=== PATIENT | female | born 1985 | race Caucasian/White ===

== ENCOUNTER 2016-04-20 09:25 | Emergency (ER) | payer BC ==
[2016-04-20 09:30] VITALS: TEMP 98
[2016-04-20] MEDS ORDERED: METOCLOPRAMIDE 5 MG/ML 2 ML VIAL IVP STA (09:54)
[2016-04-20] MEDS ORDERED: SODIUM CHLORIDE 0.9% 500 ML IV STA (09:54)
[2016-04-20] MEDS ORDERED: SODIUM CHLORIDE 0.9% 1,000 ML IV STA (09:54)
--- NOTE | 2016-04-20 10:01 | ED ---
General Adult HPI - General Chief complaint: Nausea/Vomiting/Diarrhea Stated complaint: vomiting,17 weeks preg Time Seen by Provider: 04/20/16 09:51 Source: patient, RN notes reviewed Mode of arrival: ambulatory Limitations: no limitations - History of Present Illness Initial comments: Patient is a 30-year-old female who is approximately 17 weeks , who presents emergency room today with a chief complaint of increased nausea vomiting that started at 3:30 AM. Patient does admit that she's had several bouts of vomiting. Denies any signs of blood. Denies any abdominal pain. Does admit that she's had some vaginal discharge that she has followed up with her OB about and was told it was normal for the . She denies any bleeding. Denies any other complaints or associated symptoms. Patient denies any recent fever, chills, shortness of breath, chest pain, back pain, abdominal pain, numbness or tingling, dysuria or hematuria, constipation or diarrhea, headaches or visual changes, or any other complaints. - Related Data Home Medications Medication Instructions Recorded Confirmed Levothyroxine Sodium [Synthroid] 75 mcg PO DAILY 11/04/13 04/20/16 Pnv with Ca,No.71/Iron/FA 1 tab PO HS 11/04/13 04/20/16 [Vol-Plus Tablet] Previous Rx's Medication Instructions Recorded Metoclopramide HCl [Reglan] 10 mg PO Q6HR PRN #5 day 04/20/16 Allergies Allergy/AdvReac Type Severity Reaction Status Date / Time No Known Allergies Allergy Verified 04/20/16 09:36 Review of Systems ROS Statement: Those systems with pertinent positive or pertinent negative responses have been documented in the HPI. ROS Other: All systems not noted in ROS Statement are negative. Past Medical History Past Medical History: No Reported History History of Any Multi-Drug Resistant Organisms: None Reported Past Surgical History: Breast Surgery, Cholecystectomy, Tonsillectomy Past Anesthesia/Blood Transfusion Reactions: No Reported Reaction Past Psychological History: No Psychological Hx Reported Smoking Status: Never smoker Past Alcohol Use History: None Reported Past Drug Use History: None Reported - Past Family History Mother Family Medical History: No Reported History General Exam - General Exam Comments Initial Comments: General: The patient is awake and alert, in no distress, and does not appear acutely ill. Eye: Pupils are equal, round and reactive to light, extra-ocular movements are intact. No nystagmus. There is normal conjunctiva bilaterally. No signs of icterus. Ears, nose, mouth and throat: There are moist mucous membranes and no oral lesions. Neck: The neck is supple, there is no tenderness or JVD. Cardiovascular: There is a regular rate and rhythm. No murmur, rub or gallop is appreciated. Respiratory: Lungs are clear to auscultation, respirations are non-labored, breath sounds are equal. No wheezes, stridor, rales, or rhonchi. Gastrointestinal: Soft, non-distended, non-tender abdomen without masses or organomegaly noted. There is no rebound or guarding present. No CVA tenderness. Bowel sounds are unremarkable. Musculoskeletal: Normal ROM, no tenderness. Strength 5/5. Sensation intact. Pulses equal bilaterally 2+. Neurological: A&O x 3. CN II-XII intact, There are no obvious motor or sensory deficits. Coordination appears grossly intact. Speech is normal. Skin: Skin is warm and dry and no rashes or lesions are noted. Psychiatric: Cooperative, appropriate mood & affect, normal judgment. Limitations: no limitations Course Vital Signs 04/20/16 09:28 Temperature 98.0 F Pulse Rate 98 Respiratory 20 Rate Blood Pressure 116/81 O2 Sat by Pulse 98 Oximetry Medical Decision Making - Medical Decision Making Patient reexamined at this time shows no signs of distress. Patient states feeling much better here in the emergency room. Patient's ultrasound does show single IUP measuring 17 weeks 0 days. Heart rate was unable to be obtained heart tones so ultrasound was performed. Patient denies any abdominal pain. No vaginal bleeding. Patient labs of urinalysis reviewed no evidence for infection. 3+ ketones. Patient was given 1500 L bolus here the emergency room's feeling better. No nausea vomiting here. Patient will be discharged home with nausea medication of Reglan advised follow-up with her [facility] over the last 2 days. - Lab Data Lab Results 04/20/16 Range/Units 11:38 Urine Color Yellow Urine Appearance Cloudy H (Clear) Urine pH 5.0 (5.0-8.0) Ur Specific [place] 1.020 (1.001-1.035) Urine Protein Negative (Negative) Urine Glucose (UA) Negative (Negative) Urine Ketones 4+ H (Negative) Urine Blood Negative (Negative) Urine Nitrate Negative (Negative) Urine Bilirubin Negative (Negative) Urine Urobilinogen <2.0 (<2.0) mg/dL Ur Leukocyte Esterase Negative (Negative) Urine RBC <1 (0-5) /hpf Urine WBC 1 (0-5) /hpf Ur Squamous Epith Cells 1 (0-4) /hpf Urine Bacteria Rare H (None) /hpf Urine Mucus Occasional H (None) /hpf Disposition Clinical Impression: Hyperemesis gravidarum Disposition: HOME SELF-CARE Condition: Good Instructions: Hyperemesis Gravidarum (ED) Additional Instructions: Please use medication as discussed. Please follow-up with [facility] in the next 2 days of symptoms have not improved. Please return to emergency room if the symptoms increase or worsen or for any other concerns. Prescriptions: Metoclopramide HCl [Reglan] 10 mg PO Q6HR PRN #5 day PRN Reason: Nausea Referrals: Danette Kovacs DO [Primary Care Provider] - 1-2 days Chirag Johnson MD [STAFF PHYSICIAN] - 1-2 days Time of Disposition: 12:35
--- NOTE | 2016-04-20 11:46 | US ---
EXAMINATION TYPE: US OB >= 14 wk fetus DATE OF EXAM: 04/20/2016 11:21 AM COMPARISON: None CLINICAL HISTORY: Pain, vomiting TECHNIQUE: Transabdominal (TA) GESTATIONAL AGE / DATING Physician Established: (17 weeks/0 days) EDC: 09/28/16 Dates by LMP: unknown Dates by First Scan: not available Dates by Current Scan: (17 weeks/0 days) EDC: 09/28/16 SURVEY IUP: Single PLACENTA: Posterior PREVIA: Low Lying PORSHA: cm 10.57 CERVICAL LENGTH (transabdominal: norm > 3.0cm): 3.5cm BIOMETRY PRESENTATION: Vertex LIE: Transverse with head maternal Left BPD: 3.6 cm 17 weeks / 0 days HC: 13.3 cm 16 weeks / 6 days AC: 11.2 cm 17 weeks / 0 days FL: 2.4 cm weeks / days ESTIMATED WEIGHT IN GRAMS: 182 grams ESTIMATED WEIGHT IN LBS/OZS: 0 lbs. 6 oz. WEIGHT PERCENTAGE BASED ON ESTABLISHED DATES: 53.% HC/AC: 13.3 FL/AC: 2.4 HEART RATE: 176 bpm MATERNAL WALL MEASUREMENT: 5.7 cm from skin to anterior uterine wall (if exam limited due to body hab itus). TECHNOLOGIST IMPRESSION: viable with dates above IMPRESSION: Schilling fetus present in a vertex lie with a gestational age of 17 weeks +/- 10 days. Estimated ricardo e of confinement based on this examination is 09/28/2016. Please note the presence of a low-lying placenta. Follow-up in the third trimester would be suggested to further assess placental positioning.
[2016-04-20 12:00] LABS: Appearance,Urine Cloudy (Clear); Bacteria,Urine Rare /hpf; Bilirubin,Urine Negative (Negative); Glucose,Urine (UA) Negative (Negative); Ketones,Urine 4+ (Negative); Leukocyte Esterase,Urine Negative (Negative); Mucus,Urine Occasional /hpf; Nitrite,Urine Negative (Negative); Particle Count 6802; Protein,Urine Negative (Negative); RBC,Urine <1 /hpf (0-5); Squamous Epithelial Cell,Urine 1 /hpf (0-4); UA Billing (MACRO vs. MICRO) MICRO; Urobilinogen,Urine <2.0 mg/dL (<2.0); WBC,Urine 1 /hpf (0-5)
[2016-04-20 12:54] VITALS: BP 107/55; PULSE 99; RESP 15
== END 2016-04-20 12:55 | disposition home or self-care (01) ==
LOC: EC 09:25
DX: O21.0 Mild hyperemesis gravidarum (principal); Z3A.17 17 weeks gestation of pregnancy; Z79.899 Other long term (current) drug therapy
CPT/HCPCS: 81001; 87086; 76805; 99284; 96361; 96374; J2765

== ENCOUNTER 2016-08-30 14:04 | Outpatient (CLI) | payer BC ==
[2016-08-30 14:58] VITALS: BP 121/70; PULSE 85; RESP 16; TEMP 97.5
== END 2016-08-30 14:40 | disposition home or self-care (01) ==
LOC: FBPOP 14:04
PROVIDERS: ATTEND Obstetrics & Gynecology
DX: O26.93 Pregnancy related conditions, unspecified, third trimester (principal); Z3A.35 35 weeks gestation of pregnancy
CPT/HCPCS: 59025; 99213

== ENCOUNTER 2016-09-12 14:45 | Outpatient (CLI) | payer BC ==
[2016-09-12 15:30] VITALS: BP 113/55; PULSE 96; RESP 18; TEMP 97.2
== END 2016-09-12 15:39 | disposition home or self-care (01) ==
LOC: FBPOP 14:45
PROVIDERS: ATTEND Obstetrics & Gynecology
DX: O26.93 Pregnancy related conditions, unspecified, third trimester (principal); Z3A.37 37 weeks gestation of pregnancy
CPT/HCPCS: 59025; 84112; 99213

== ENCOUNTER 2016-09-22 09:59 | Inpatient (IN) | payer BC ==
[2016-09-22] MEDS ORDERED: ceFAZolin 2 GM in SODIUM CHLORIDE 0.9% 100 ML IVPB ONE (10:18)
[2016-09-22] MEDS ORDERED: CITRIC ACID-SODIUM CITRATE 15 ML CUP PO ONE (10:18)
[2016-09-22 10:28] VITALS: BMI 40.3
[2016-09-22] MEDS ORDERED: LACTATED RINGERS 1,000 ML IV ONE (10:45)
[2016-09-22 10:52] LABS: Basophils % (A) 0 %; CH 31.3; Eosinophils # (A) 0.1 k/uL (0-0.7); Eosinophils % (A) 1 %; HDW 2.77; Luc % (Auto) 1; Lymphocytes % (A) 24 %; MCH 31.7 pg (25.0-35.0); MCHC 35.2 g/dL (31.0-37.0); Mean Platelet Volume 8.4; Monocytes # (A) 0.3 k/uL (0-1.0); Monocytes % (A) 4 %; Neutrophils # (A) 5.9 k/uL (1.3-7.7); Neutrophils % (A) 70 %; RBC 4.11 m/uL (3.80-5.40); RDW 13.5 % (11.5-15.5); WBC 8.4 k/uL (3.8-10.6); WBC (Perox) 7.95
[2016-09-22] MEDS ORDERED: ONDANSETRON 4 MG/2 ML VIAL ONE (12:14)
[2016-09-22] MEDS ORDERED: KETOROLAC 30 MG/ML 1 ML VIAL ONE (12:14)
[2016-09-22] MEDS ORDERED: NALBUPHINE 10 MG/ML AMPUL ONE (12:14)
[2016-09-22] MEDS ORDERED: MORPHINE SULFATE (PF) 0.3 MG/0.3 ML SYR ONE (12:14)
[2016-09-22] MEDS ORDERED: ePHEDrine 50 MG/ML 1 ML AMP ONE (12:14)
[2016-09-22] MEDS ORDERED: OXYTOCIN 10 UNIT/ML 1 ML VIAL ONE (12:14)
[2016-09-22] MEDS ORDERED: diphenhydrAMINE 50 MG/ML 1 ML VIAL IVP PRN ×3 (12:41→13:08)
[2016-09-22] MEDS ORDERED: NALOXONE 0.4 MG/ML 1 ML VIAL IV PRN ×2 (12:41→13:08)
[2016-09-22] MEDS ORDERED: MORPHINE SULFATE 4 MG/ML SYRINGE IVP PRN (12:41)
[2016-09-22] MEDS ORDERED: ONDANSETRON 4 MG/2 ML VIAL IVP PRN ×2 (12:41→13:08)
[2016-09-22] MEDS ORDERED: diphenhydrAMINE 50 MG CAP PO PRN (13:08)
[2016-09-22] MEDS ORDERED: ACETAMINOPHEN TAB 325 MG TAB PO PRN (13:08)
[2016-09-22] MEDS ORDERED: SIMETHICONE 80 MG CHEWABLE PO PRN (13:08)
[2016-09-22] MEDS ORDERED: diphenhydrAMINE 25 MG CAP PO PRN (13:08)
[2016-09-22] MEDS ORDERED: METOCLOPRAMIDE 5 MG/ML 2 ML VIAL IVP PRN (13:08)
[2016-09-22] MEDS ORDERED: KETOROLAC 30 MG/ML 1 ML VIAL IVP PRN (13:08)
[2016-09-22] MEDS ORDERED: Acetaminophen-Codeine 300-30mg TAB PO PRN (13:08)
[2016-09-22] MEDS ORDERED: ZOLPIDEM 5 MG TAB PO PRN (13:08)
--- NOTE | 2016-09-22 13:08 | P.HPOB ---
History of Present Illness H&P Date: 09/22/16 Chief Complaint: 39 and one sevenths weeks, previous section, undesired fertility The patient is a 31-year-old 2 para 1001 admitted at 39 and one sevenths weeks as established by last menstrual period and confirmed by an 18 week ultrasound. She is admitted for repeat low transverse section with intraoperative bilateral tubal occlusion using Filshie clips. Consent was signed for these procedures in the office. She understands the permanent nature of tubal ligation and has agreed to proceed. Her has been otherwise uncomplicated. She has a history of a previous section and requested repeat rather than trial of labor. Her was otherwise uncomplicated and group B strep status was negative. Obstetrical history: 2 para 1001 with 1 term delivery for arrest of dilation and descent. Current statistics are listed in history present illness. EDC of 09/28/2016 was established by last menstrual period and confirmed by 18 week ultrasound. Laboratory workup demonstrates a blood type of B+ with a negative antibody screen. Rubella status is immune. Remainder of the laboratory workup was within normal limits. Early Glucola as well as second trimester Glucola were within normal limits per group B strep status is negative. Gynecologic history: Unremarkable with no history of any infections to include STDs. Review of Systems Review of systems is confined to history of present illness. Past Medical History Past Medical History: GERD/Reflux, Thyroid Disorder History of Any Multi-Drug Resistant Organisms: None Reported Past Surgical History: Breast Surgery, Section, Cholecystectomy, Tonsillectomy Past Anesthesia/Blood Transfusion Reactions: Motion Sickness, Postoperative Nausea & Vomiting (PONV) Past Psychological History: Anxiety Smoking Status: Never smoker - Past Family History Mother Family Medical History: No Reported History Additional Family Medical History / Comment(s): high cholesterol Father Family Medical History: Diabetes Mellitus, Hypertension Medications and Allergies Home Medications Medication Instructions Recorded Confirmed Type Levothyroxine Sodium [Synthroid] 75 mcg PO DAILY 11/04/13 09/22/16 History Pnv with Ca,No.71/Iron/FA 1 tab PO HS 11/04/13 09/22/16 History [Vol-Plus Tablet] Omeprazole [PriLOSEC] 1 tab PO DAILY 08/30/16 09/21/16 History Allergies Allergy/AdvReac Type Severity Reaction Status Date / Time No Known Allergies Allergy Verified 09/21/16 13:18 Exam - Vital Signs Vital signs: Vital Signs Temp Pulse Resp BP Pulse Ox 09/22/16 10:00 98.2 F 86 16 111/57 97 Intake and Output 09/21/16 09/22/16 09/22/16 22:59 06:59 14:59 Other: Weight 113.398 kg Patient Weight 09/23/16 06:59 Weight 113.398 kg In general, this is a moderately obese white female in no acute distress. Her heart has a regular rhythm and rate without murmur. Her lungs are clear to auscultation bilaterally in all balderas. Her abdomen is nondistended, gravid, has normal active bowel sounds, is soft, nontender, and without any palpable masses aside from the uterine fundus. Her extremities without any cyanosis, clubbing, or edema and are nontender to palpation bilaterally. Digital cervical examination is deferred. Results Result Diagrams: 09/22/16 10:35 Assessment and Plan (1) Family planning Status: Acute (2) Previous section Status: Acute (3) Term Status: Acute Plan: The patient is admitted for repeat low transverse section with intraoperative bilateral tubal occlusion using Filshie clips. Again, the risks and complications amount thoroughly discussed and she has agreed to proceed.
[2016-09-22] MEDS ORDERED: OXYTOCIN 20 UNITS/1000 ML NS 1,000 ML IV SCH (13:15)
--- NOTE | 2016-09-22 13:27 | P.OP ---
Date of Procedure: 09/22/16 Preoperative Diagnosis: #1. 39 and one sevenths weeks intrauterine #2. Previous section, declining trial of labor #3. Undesired fertility Postoperative Diagnosis: Same plus #4. Nuchal cord 1 Procedure(s) Performed: #1. Repeat low transverse section #2. Bilateral tubal occlusion using Filshie clips Implants: Anesthesia: spinal Surgeon: Chirag Johnson [employer] Attendant #1: Alfreda Donohue Estimated Blood Loss (ml): 500 IV fluids (ml): 100 Urine output (ml): 300 Pathology: other (Placenta) Condition: stable Disposition: floor Indications for Procedure: Operative Findings: The patient was taken the operating room where she was delivered of a viable 8 lbs. 12 oz. baby girl with Apgars of 9 at 1 minute and 9 at 5 minutes delivered in the left occiput anterior position. The placenta was delivered manually, intact, and grossly normal with a grossly normal three-vessel cord. The uterus , tubes, and ovaries were entirely normal to inspection though there were several very small fibroids on the fundus. Description of Procedure: The patient was prepped and draped in usual fashion after spinal anesthesia was administered by the anesthesiologist. A Pfannenstiel incision was made through pre-existing scar and extended into the abdominal cavity without difficulty. There was minimal scarring present. The bladder peritoneum was distal to the site of the incision and left intact. A 2 cm incision was made in the transverse plane of the lower uterine segment to enter the uterus at which time clear fluid was noted. The incision was extended in both directions using bandage scissors. The head was not engaged in the pelvis but was ultimately delivered through the incision with minimal difficulty. A nuchal cord was noted 1 and reduced at that time. The nose and mouth were thoroughly suctioned and the remainder the delivered onto the field where the cord was doubly clamped, cut, and the passed for resuscitative measures with weight and Apgars as noted above. A segment of cord was then doubly clamped, cut, and set aside should cord gases become necessary. The placenta was delivered manually and intact as noted above. The uterus was exteriorized and the interior cavity of the uterus swept of any remaining placental or membranous fragments. The margins of the incision were grasped with King clamps and the incision closed in a single running locking stitch of 0 chromic catgut from margin to margin. Any small points of bleeding were made hemostatic with the Bovie. The posterior cul-de-sac was suctioned using a guard. The uterus was inspected with the findings as noted above. After reaffirming the patient's desire for tubal ligation, a Filshie clip was placed across the isthmic portion of each fallopian tube on each side where was firmly affixed. The uterus was then replaced within the abdominal cavity and the gutters swept of any remaining blood, fluid, or clot. The incision was reexamined and found to be hemostatic. The parietal peritoneum was loosely reapproximated and layer of muscles examined and found to be hemostatic. The fascia was closed with 2 running stitches of 0 Vicryl proceeding from lateral margins to the midpoint. The subcutaneous tissues were irrigated, made hemostatic with the Bovie, and reapproximated with a running stitch of 30 plain catgut. The skin was reapproximated with a running subcuticular stitch of 4-0 Vicryl from margin to margin followed by half-inch Steri-Strips placed with Mastisol. Estimated blood loss for the case is approximately 500 mL. There were no complications. All sponge, instrument, and needle counts were correct. Both mother and infant are resting comfortably in recovery.
[2016-09-22] MEDS: LACTATED RINGERS 1,000 ML IV SCH ×2 (20:24)
[2016-09-22] MEDS: SENNOSIDES-DOCUSATE SODIUM 1 EACH TAB PO SCH (20:51)
[2016-09-23] MEDS: LACTATED RINGERS 1,000 ML IV SCH ×5 (02:18→20:10)
[2016-09-23 07:39] LABS: Basophils % (A) 0 %; CH 31.1; Eosinophils % (A) 0 %; HCT 35.9 % (34.0-46.0); HDW 2.67; HGB 12.3 gm/dL (11.4-16.0); Luc % (Auto) 1; Lymphocytes # (A) 1.5 k/uL (1.0-4.8); Lymphocytes % (A) 16 %; MCH 31.6 pg (25.0-35.0); MCHC 34.3 g/dL (31.0-37.0); MCV 92.1 fL (80.0-100.0); Mean Platelet Volume 9.2; Monocytes # (A) 0.5 k/uL (0-1.0); Monocytes % (A) 5 %; Neutrophils # (A) 7.2 k/uL (1.3-7.7); Neutrophils % (A) 78 %; RDW 13.5 % (11.5-15.5); WBC 9.2 k/uL (3.8-10.6); WBC (Perox) 9.52
--- NOTE | 2016-09-23 09:13 | P.PN ---
Progress Note - Text 0737 Anesthesia POD 1. Patient is status post section under spinal anesthesia with intra-thecal preservative free morphine 300 g. Minimal pruritus, good post-op analgesia, and no headache or other complication.
--- NOTE | 2016-09-23 10:34 | P.PNOBGPC ---
Subjective - Subjective Patient reports: Reports appetite normal, Reports voiding normally, Reports pain well controlled, Reports ambulating normally : doing well Objective - Vital Signs Latest vital signs: Vital Signs Temp Pulse Resp BP Pulse Ox 09/23/16 06:00 100 09/23/16 04:00 98.1 F 85 17 109/57 98 09/23/16 02:00 100 09/23/16 00:00 97.9 F 75 18 105/62 100 09/22/16 22:00 100 09/22/16 20:00 98.2 F 70 18 111/62 100 09/22/16 15:25 98.0 F 89 16 113/57 09/22/16 14:36 78 16 120/59 09/22/16 14:06 81 16 111/56 09/22/16 14:00 98 09/22/16 13:50 80 16 111/56 96 09/22/16 13:35 80 16 106/66 98 09/22/16 13:20 75 16 131/62 09/22/16 13:06 97.6 F 86 16 102/51 100 09/22/16 12:41 98 Intake and Output 09/22/16 09/23/16 09/23/16 22:59 06:59 14:59 Intake Total 240 Output Total 400 2500 Balance -160 -2500 Intake: Oral 240 Output: Urine 400 2500 Uretheral (Jenkins) 1500 - Exam Extremities: Present: normal Abdomen: Present: normal appearance, soft. Absent: distention, tenderness Incision: Present: normal, dry, intact Uterus: Present: normal, firm (The uterine fundus as tonic and nontender below the umbilicus.) Assessment and Plan (1) Family planning Current Visit: Yes Status: Acute Code(s): Z30.09 - ENCOUNTER FOR OTH GENERAL CNSL AND ADVICE ON CONTRACEPTION SNOMED Code(s): 10372294 (2) Previous section Current Visit: Yes Status: Acute Code(s): Z98.891 - HISTORY OF UTERINE SCAR FROM PREVIOUS SURGERY SNOMED Code(s): 480336696 (3) Term Current Visit: Yes Status: Acute Code(s): Z34.80 - ENCOUNTER FOR SUPRVSN OF NORMAL , UNSP TRIMESTER SNOMED Code(s): 85954593 (4) delivery delivered Narrative/Plan: Continue routine postoperative care. I would anticipate discharge home tomorrow pending applications. I have encouraged the patient to continue to ambulate in the halls routinely. Current Visit: Yes Status: Acute Code(s): O82 - ENCOUNTER FOR DELIVERY WITHOUT INDICATION SNOMED Code(s): 817005121
[2016-09-23] MEDS: IBUPROFEN 600 MG TAB PO PRN ×2 (13:27→20:16)
[2016-09-23] MEDS: Acetaminophen-Codeine 300-30mg TAB PO PRN ×2 (17:01→23:40)
[2016-09-23] MEDS: SENNOSIDES-DOCUSATE SODIUM 1 EACH TAB PO SCH (20:10)
[2016-09-24] MEDS: IBUPROFEN 600 MG TAB PO PRN (03:48)
[2016-09-24] MEDS: LACTATED RINGERS 1,000 ML IV SCH ×3 (05:42→11:36)
[2016-09-24 09:49] VITALS: BP 115/74; PULSE 79; RESP 16; TEMP 97.5
[2016-09-24] MEDS: SENNOSIDES-DOCUSATE SODIUM 1 EACH TAB PO SCH (09:49)
--- NOTE | 2016-09-24 11:34 | P.DS ---
Providers Date of admission: 09/22/16 09:59 Expected date of discharge: 09/24/16 Attending physician: Chirag Johnson Primary care physician: Stated None - Discharge Diagnosis(es) (1) delivery delivered Current Visit: Yes Status: Acute (2) Family planning Current Visit: Yes Status: Acute (3) Previous section Current Visit: Yes Status: Acute (4) Term Current Visit: Yes Status: Acute Hospital Course: This is a 31-year-old 2 now para 2 woman who is admitted at 39+ weeks gestation for scheduled repeat low transverse section and bilateral tubal ligation. She went to the operating room where she underwent an uncomplicated repeat with tubal ligation. Findings at the time of surgery were significant for a female infant weighing 8 lbs. 12 oz. with Apgars of 9 at 1 minute and 9 at 5 minutes. The patient's postoperative course was entirely unremarkable. By postoperative day #1 she was ambulating and voiding without difficulty and tolerating a general diet. By postoperative day #2 she continued to do well. Her pain was controlled with oral pain medications and her incision appeared well healing. She was therefore discharged home with routine instructions for care and follow-up. Plan - Discharge Summary New Discharge Prescriptions: New Acetaminophen-Codeine 300-30mg [Tylenol w/codeine #3] 2 each PO Q4HR PRN #20 tab PRN Reason: Moderate To Severe Pain Ibuprofen [Motrin] 600 mg PO Q6HR PRN tab PRN Reason: Mild Pain Or Fever >= 100.5 No Action Levothyroxine Sodium [Synthroid] 75 mcg PO DAILY Pnv with Ca,No.71/Iron/FA [Vol-Plus Tablet] 1 tab PO HS Omeprazole [PriLOSEC] 1 tab PO DAILY Discharge Medication List Levothyroxine Sodium [Synthroid] 75 mcg PO DAILY 11/04/13 [History] Pnv with Ca,No.71/Iron/FA [Vol-Plus Tablet] 1 tab PO HS 11/04/13 [History] Omeprazole [PriLOSEC] 1 tab PO DAILY 08/30/16 [History] Acetaminophen-Codeine 300-30mg [Tylenol w/codeine #3] 2 each PO Q4HR PRN #20 tab 09/24/16 [Rx] Ibuprofen [Motrin] 600 mg PO Q6HR PRN tab 09/24/16 [Rx] Follow up Appointment(s)/Referral(s): Chirag Johnson MD [STAFF PHYSICIAN] - 2 Weeks Activity/Diet/Wound Care/Special Instructions: Follow-up in 2 weeks after surgery in the office. Call the office with any concerning signs or symptoms including fever greater than 101, severe abdominal pain, heavy vaginal bleeding, signs of wound infection, increased swelling or redness of the lower extremities, signs of depression. No driving for 2 weeks after surgery. No heavy lifting or vigorous activity until reevaluated in the office. No intercourse for 6 weeks after delivery. Discharge Disposition: HOME SELF-CARE
== END 2016-09-24 12:55 | disposition home or self-care (01) | DRG 766 ==
LOC: 4FBP 09:59
PROVIDERS: ADMIT Obstetrics & Gynecology; ATTEND Obstetrics & Gynecology
PROC: 0UL70CZ Occlusion of Bilateral Fallopian Tubes with Extraluminal Device, Open Approach (ICD-10-PCS; 2016-09-22)
PROC: 3E0S3NZ Introduction of Analgesics, Hypnotics, Sedatives into Epidural Space, Percutaneous Approach (ICD-10-PCS; 2016-09-22)
PROC: 10D00Z1 Extraction of Products of Conception, Low, Open Approach (ICD-10-PCS; principal; 2016-09-22 12:00)
DX: O34.211 Maternal care for low transverse scar from previous cesarean delivery (principal); O99.214 Obesity complicating childbirth; D25.9 Leiomyoma of uterus, unspecified; O69.81X0 Labor and delivery complicated by cord around neck, without compression, not applicable or unspecified; F41.9 Anxiety disorder, unspecified; E07.9 Disorder of thyroid, unspecified; O99.284 Endocrine, nutritional and metabolic diseases complicating childbirth; N85.8 Other specified noninflammatory disorders of uterus; K21.9 Gastro-esophageal reflux disease without esophagitis; O99.344 Other mental disorders complicating childbirth; O99.62 Diseases of the digestive system complicating childbirth; O34.13 Maternal care for benign tumor of corpus uteri, third trimester; Z30.2 Encounter for sterilization; Z79.899 Other long term (current) drug therapy; Z82.49 Family history of ischemic heart disease and other diseases of the circulatory system; Z3A.39 39 weeks gestation of pregnancy; Z83.3 Family history of diabetes mellitus; Z37.0 Single live birth; Z3A.49 Greater than 42 weeks gestation of pregnancy; Z90.49 Acquired absence of other specified parts of digestive tract
CPT/HCPCS: 85025; 86850; 86900; 86901; 88307

== ENCOUNTER 2022-09-13 17:52 | Emergency (ER) | payer BC ==
[2022-09-13 18:07] VITALS: BP 124/58; PULSE 40; RESP 16; TEMP 97.6
--- NOTE | 2022-09-13 18:45 | XR ---
EXAMINATION TYPE: XR chest 2V DATE OF EXAM: 09/13/2022 COMPARISON: NONE HISTORY: Chest pain TECHNIQUE: Frontal and lateral views of the chest are obtained. FINDINGS: There is no focal air space opacity. No evidence for pneumothorax. No pleural effusion. The cardiac silhouette size is within normal limits. The osseous structures are grossly intact. IMPRESSION: 1. No acute cardiopulmonary process.
[2022-09-13 19:04] LABS: ALT 45 U/L (4-34); AST 57 U/L (14-36); African American GFR (CKD) >90 (>60 ml/min/1.73 sqM); Albumin 4.5 g/dL (3.5-5.0); Alkaline Phosphatase 48 U/L (38-126); Anion Gap 8 mmol/L; Blood Urea Nitrogen 13 mg/dL (7-17); Carbon Dioxide 26 mmol/L (22-30); Chloride 105 mmol/L (98-107); Glucose 76 mg/dL (74-99); Non-African American GFR(CKD) >90 (>60 ml/min/1.73 sqM); Potassium 3.7 mmol/L (3.5-5.1); Sodium 139 mmol/L (137-145); Total Bilirubin 0.8 mg/dL (0.2-1.3); Total Protein 7.3 g/dL (6.3-8.2)
[2022-09-13 19:10] LABS: Partial Thromboplastin Time 22.7 sec (22.0-30.0); Prothrombin Time 10.7 sec (9.0-12.0)
[2022-09-13] MEDS ORDERED: SODIUM CHLORIDE 0.9% 1,000 ML IV STA (20:05)
--- NOTE | 2022-09-13 20:19 | ED ---
Arrhythmia/Palpitations HPI - General Chief Complaint: Arrhythmia/Palpitations Stated Complaint: low heart rate Time Seen by Provider: 09/13/22 20:05 Source: patient Mode of arrival: ambulatory Limitations: no limitations - History of Present Illness Initial Comments: Patient is a 37-year-old female presents to the emergency department for low heart rate. Patient has history of bradycardia states her heart rate is usually in the mid 40s and today she noticed on her watch her heart rate was intermittently in the high 30s. She denies chest pain, shortness of breath, lightheadedness, dizziness, weakness, fatigue. Patient otherwise feels well. States she has been doing colon prep for colonoscopy tomorrow due to history of polyps. 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 She does take Synthroid for hypothyroidism. - Related Data Home Medications Medication Instructions Recorded Confirmed Levothyroxine Sodium [Synthroid] 75 mcg PO DAILY 11/04/13 09/12/22 Ibuprofen [Motrin Ib] 400 mg PO DIRECTED 09/12/22 09/12/22 Methylcellulose (with Sugar) 2 tbsp PO DAILY 09/12/22 09/12/22 [Citrucel] Allergies Allergy/AdvReac Type Severity Reaction Status Date / Time No Known Allergies Allergy Verified 09/13/22 18:06 Review of Systems ROS Statement: Those systems with pertinent positive or pertinent negative responses have been documented in the HPI. ROS Other: All systems not noted in ROS Statement are negative. Past Medical History Past Medical History: Thyroid Disorder Additional Past Medical History / Comment(s): IBS, arthritis to lower back. hx polyps History of Any Multi-Drug Resistant Organisms: None Reported Past Surgical History: Breast Surgery, Section, Cholecystectomy, Tonsillectomy, Tubal Ligation Additional Past Surgical History / Comment(s): colonoscopy x2 Past Anesthesia/Blood Transfusion Reactions: Postoperative Nausea & Vomiting (PONV) Past Psychological History: No Psychological Hx Reported Smoking Status: Never smoker - Past Family History Mother Family Medical History: Hyperlipidemia Father Family Medical History: Cancer, Diabetes Mellitus, Hypertension Additional Family Medical History / Comment(s): stomach cancer General Exam Limitations: no limitations Respiratory exam: Present: normal lung sounds bilaterally. Absent: respiratory distress, wheezes, rales, rhonchi, stridor Cardiovascular Exam: Present: regular rate, normal rhythm, normal heart sounds. Absent: systolic murmur, diastolic murmur, rubs, gallop, clicks GI/Abdominal exam: Present: soft, normal bowel sounds. Absent: distended, tenderness, guarding, rebound, rigid Extremities exam: Present: normal inspection, normal capillary refill Neurological exam: Present: alert, oriented X3, CN II-XII intact Psychiatric exam: Present: normal affect, normal mood Skin exam: Present: warm, dry, intact, normal color. Absent: rash Course Vital Signs 09/13/22 18:03 Temperature 97.6 F Pulse Rate 40 L Respiratory 16 Rate Blood Pressure 124/58 O2 Sat by Pulse 100 Oximetry Medical Decision Making - Medical Decision Making Was pt. sent in by a medical professional or institution (, [facility]NA, ASSIGNMENT MANAGER, urgent care, hospital, or jail...) When possible be specific @ -No Did you speak to anyone other than the patient for history (EMS, parent, family, police, friend...)? What history was obtained from this source @ -No Did you review nursing and triage notes (agree or disagree)? Why? @ -I reviewed and agree with nursing and triage notes Were old charts reviewed (outside hosp., previous admission, EMS record, old EKG, old radiological studies, urgent care reports/EKG's, jail records)? Report findings @ -No old charts were reviewed Differential Diagnosis (chest pain, altered mental status, abdominal pain women, abdominal pain men, vaginal bleeding, weakness, fever, dyspnea, syncope, headache, dizziness, GI bleed, back pain, seizure, CVA, palpatations, mental health)? @ -bradycardia, sick sinus syndrome, heart block EKG interpreted by me (3pts min.). @ -As above X-rays interpreted by me (1pt min.). @ -No acute cardiopulmonary process CT interpreted by me (1pt min.). @ -None done U/S interpreted by me (1pt. min.). @ -None done What testing was considered but not performed or refused? (CT, X-rays, U/S, labs)? Why? @ -None What meds were considered but not given or refused? Why? @ -None Did you discuss the management of the patient with other professionals (professionals i.e. , [facility]NA, ASSIGNMENT MANAGER, lab, RT, psych nurse, social worker school, trouble operator, teacher, press officer, home health care case manager)? Give summary @ -No Was smoking cessation discussed for >3mins.? @ -No Was critical care preformed (if so, how long)? @ -No Were there social determinants of health that impacted care today? How? (Homelessness, low income, unemployed, alcoholism, drug addiction, transportation, low edu. Level, literacy, decrease access to med. care, [facility], rehab)? @ -No Was there de-escalation of care discussed even if they declined (Discuss DNR or withdrawal of care, Hospice)? DNR status @ -No What co-morbidities impacted this encounter? (DM, HTN, Smoking, COPD, CAD, Cancer, CVA, ARF, Chemo, Hep., AIDS, mental health diagnosis, sleep apnea, morbid obesity)? @ -None Was patient admitted / discharged? Hospital course, mention meds given and route, prescriptions, significant lab abnormalities, going to OR and other pertinent info. @ -Discharged. Pulse is 63 during my evaluation. Patient asymptomatic and is in stable medical condition for discharge and her colonoscopy tomorrow. Undiagnosed new problem with uncertain prognosis? @ -No Drug Therapy requiring intensive monitoring for toxicity (Heparin, Nitro, Insulin, Cardizem)? @ -No Were any procedures done? @ -No] Diagnosis/symptom? @ -bradycardia Acute, or Chronic, or Acute on Chronic? @ -acute Uncomplicated (without systemic symptoms) or Complicated (systemic symptoms)? @ uncomplicated Side effects of treatment? @ -[No] Exacerbation, Progression, or Severe Exacerbation? @ -[No] Poses a threat to life or bodily function? How? (Chest pain, [place], [place], pneumonia, PE, COPD, DKA, ARF, appy, cholecystitis, CVA, Diverticulitis, Homicidal, Suicidal, threat to staff... and all critical care pts) @ -[No] Dr. Perera is my attending - Lab Data Result diagrams: 09/13/22 18:24 Lab Results 09/13/22 09/13/22 09/13/22 Range/Units 18:24 18:24 18:24 PT 10.7 (9.0-12.0) sec INR 1.0 (<1.2) APTT 22.7 (22.0-30.0) sec Sodium 139 (137-145) mmol/L Potassium 3.7 (3.5-5.1) mmol/L Chloride 105 (98-107) mmol/L Carbon Dioxide 26 (22-30) mmol/L Anion Gap 8 mmol/L BUN 13 (7-17) mg/dL Creatinine 0.64 (0.52-1.04) mg/dL Est GFR (CKD-EPI)AfAm >90 (>60 ml/min/1.73 sqM) Est GFR (CKD-EPI)NonAf >90 (>60 ml/min/1.73 sqM) Glucose 76 (74-99) mg/dL Calcium 9.0 (8.4-10.2) mg/dL Magnesium 2.0 (1.6-2.3) mg/dL Total Bilirubin 0.8 (0.2-1.3) mg/dL AST 57 H (14-36) U/L ALT 45 H (4-34) U/L Alkaline Phosphatase 48 (38-126) U/L Troponin I <0.012 (0.000-0.034) ng/mL Total Protein 7.3 (6.3-8.2) g/dL Albumin 4.5 (3.5-5.0) g/dL Disposition Clinical Impression: Bradycardia Disposition: HOME SELF-CARE Condition: Good Instructions (If sedation given, give patient instructions): Bradycardia (ED) Additional Instructions: Please follow-up with your primary care provider in 1-2 days. Return to the emergency department if you experience new, concerning, or worsening symptoms. Is patient prescribed a controlled substance at d/c from ED?: No Referrals: [facility], PAC [Primary Care Provider] - 1-2 days
== END 2022-09-13 21:05 | disposition home or self-care (01) ==
LOC: EC 17:52
DX: R00.1 Bradycardia, unspecified (principal); E03.9 Hypothyroidism, unspecified; Z79.890 Hormone replacement therapy
CPT/HCPCS: 36415; 71046; 80053; 83735; 84484; 85610; 85730; 93005; 99285

== ENCOUNTER 2022-09-14 07:53 | Day surgery (SDC) | payer BC ==
[2022-09-14] MEDS ORDERED: LACTATED RINGERS 1,000 ML IV ONE (08:01)
[2022-09-14] MEDS ORDERED: LIDOCAINE 1% (10MG/ML) FOR IV START INTRADERMA PRN (08:04)
[2022-09-14] MEDS ORDERED: LACTATED RINGERS 1,000 ML IV SCH (08:04)
[2022-09-14 08:23] VITALS: RESP 18; TEMP 97
--- NOTE | 2022-09-14 08:45 | P.GSHP ---
History of Present Illness H&P Date: 09/14/22 CHIEF COMPLAINT: GERD and change in bowel habits HISTORY OF PRESENT ILLNESS: The patient is a 37-year-old female who presents with gastroesophageal reflux disease and need for change in bowel habits. Upper and lower endoscopy were offered for further evaluation and management. PAST MEDICAL HISTORY: Please see list. PAST SURGICAL HISTORY: Please see list. MEDICATIONS: Please see list. ALLERGIES: Please see list. SOCIAL HISTORY: No illicit drug use FAMILY HISTORY: No reports of Crohn disease or ulcerative colitis. REVIEW OF ORGAN SYSTEMS: CONSTITUTIONAL: No reports of fevers or chills. PHYSICAL EXAM: VITAL SIGNS: Stable GENERAL: Well-developed pleasant in no acute distress. HEENT: No scleral icterus. Extraocular movements grossly intact. Moist buccal mucosa. NECK: Supple without lymphadenopathy. CHEST: Unlabored respirations. Equal bilateral excursions. CARDIOVASCULAR: Regular rate and rhythm. Distal 2+ pulses. ABDOMEN: Soft, nondistended. MUSCULOSKELETAL: No clubbing, cyanosis, or edema. ASSESSMENT: 1. Gastroesophageal reflux disease 2. Change in bowel habit PLAN: 1. Recommend proceeding with an upper and lower endoscopy Past Medical History Past Medical History: Thyroid Disorder Additional Past Medical History / Comment(s): IBS, arthritis to lower back. hx polyps History of Any Multi-Drug Resistant Organisms: None Reported Past Surgical History: Breast Surgery, Section, Cholecystectomy, Tonsillectomy, Tubal Ligation Additional Past Surgical History / Comment(s): colonoscopy x2 Past Anesthesia/Blood Transfusion Reactions: Postoperative Nausea & Vomiting (PONV) Past Psychological History: No Psychological Hx Reported Smoking Status: Never smoker - Past Family History Mother Family Medical History: Hyperlipidemia Additional Family Medical History / Comment(s): high cholesterol Father Family Medical History: Cancer, Diabetes Mellitus, Hypertension Additional Family Medical History / Comment(s): stomach cancer Medications and Allergies Home Medications Medication Instructions Recorded Confirmed Type Levothyroxine Sodium [Synthroid] 75 mcg PO DAILY 11/04/13 09/14/22 History Ibuprofen [Motrin Ib] 400 mg PO DIRECTED 09/12/22 09/12/22 History Methylcellulose (with Sugar) 2 tbsp PO DAILY 09/12/22 09/12/22 History [Citrucel] Allergies Allergy/AdvReac Type Severity Reaction Status Date / Time No Known Allergies Allergy Verified 09/14/22 08:31 Surgical - Exam Vital Signs Temp Pulse Resp BP Pulse Ox 97 F L 59 L 18 110/72 99 09/14/22 08:17 09/14/22 08:17 09/14/22 08:17 09/14/22 08:17 09/14/22 08:17
[2022-09-14] MEDS ORDERED: LIDOCAINE 2% INJ 20 MG/ML (2 ML VIAL) ONE (08:48)
[2022-09-14] MEDS ORDERED: PROPOFOL 10 MG/ML 20 ML VIAL IV ONE (08:48)
--- NOTE | 2022-09-14 09:00 | P.PCN ---
Date of Procedure: 09/14/22 Description of Procedure: PREOPERATIVE DIAGNOSIS: Gastroesophageal reflux disease. POSTOPERATIVE DIAGNOSIS: Gastroesophageal reflux disease. Gastritis. OPERATION: Esophagogastroduodenoscopy with biopsies along antrum and duodenum SURGEON: Deb Grace MD ANESTHESIA: MAC. INDICATIONS: The patient is a 37-year-old female who presents with reflux disease. Benefits and risks of the procedure were described. Informed consent was obtained. DESCRIPTION: The patient was brought into the endoscopy suite and laid in the left lateral decubitus position. An Olympus gastroscope was passed along the posterior oropharynx down to the distal esophagus where the squamocolumnar junction was encountered at 37 cm from the incisors. The stomach was entered and no bile reflux was found. Additional findings are listed below. Biopsies with cold forceps were obtained of the antrum. The first through third portion of the duodenum was examined. Retroflexion of the scope confirmed Hill grade 2 lower esophageal valve. The squamocolumnar junction demonstrated LA grade A erosive esophagitis. The stomach was desufflated. The patient tolerated the procedure well. FINDINGS: Squamocolumnar junction 37 cm from the incisors. Diaphragmatic hiatus at 37 cm Hill grade 2 lower esophageal valve. LA grade A erosive esophagitis. Biopsies obtained of the duodenum. Chronic gastritis with biopsies obtained. RECOMMENDATIONS: Upper endoscopy as needed.
[2022-09-14 10:04] VITALS: BP 112/56; PULSE 42
--- NOTE | 2022-09-14 10:25 | P.PCN ---
Date of Procedure: 09/14/22 Description of Procedure: PREOPERATIVE DIAGNOSIS: Change in bowel habits Family history gastrointestinal malignancy POSTOPERATIVE DIAGNOSIS: Tubular adenoma splenic lexure Tubular adenoma ascending colon Sigmoid diverticulosis Internal hemorrhoids, grade 2 OPERATION: Colonoscopy to the ileocecal valve and appendiceal orifice, cecum Colonoscopy with hot snare polypectomy SURGEON: Deb Grace MD. ANESTHESIA: MAC. INDICATIONS: The patient is an 37-year-old female who presents family history of gastrointestinal malignancy and change in bowel habits. Benefits and risks were described and informed consent was obtained. DESCRIPTION OF PROCEDURE: The patient had undergone Sutab prep. The patient had been brought into the operating room and laid in the left lateral decubitus position. After adequate intravenous sedation, the rectum was examined with 2% lidocaine jelly. External hemorrhoids were encountered. The rectal tone was within normal limits. No lesions were palpated in the rectal vault. An Olympus colonoscope was advanced until the cecum, ileocecal valve and appendiceal orifice were clearly viewed. The prep was good. Few sigmoid diverticulosis was encountered. Highly redundant sigmoid colon requiring abdominal wall pressure per Colonic polyps were found and removed. No evidence of focal colitis was found. Retroflexion of the scope demonstrated grade 2 internal hemorrhoids without active bleeding or inflammation. The colon was desufflated. The patient had tolerated the procedure well. Withdrawal time was over 6 minutes. FINDINGS: Aronchick preparation quality scale 1+ (1-5) Internal hemorrhoids, grade 2 External hemorrhoids, grade 2. No arteriovenous malformations. Sigmoid diverticulosis, few scattered Highly redundant sigmoid colon Removal of 2 polyps: - Snare polypectomy ascending colon, 8 mm tubulovillous adenoma - Snare polypectomy splenic flexure, 8 mm flat villous adenoma No focal colitis. RECOMMENDATIONS: Repeat colonoscopy in 3 years, 2025 Plan - Discharge Summary Discharge Rx Participant: No New Discharge Prescriptions: Continue Levothyroxine Sodium [Synthroid] 75 mcg PO DAILY Ibuprofen [Motrin Ib] 400 mg PO DIRECTED Methylcellulose (with Sugar) [Citrucel] 2 tbsp PO DAILY Discharge Medication List Levothyroxine Sodium [Synthroid] 75 mcg PO DAILY 11/04/13 [History] Ibuprofen [Motrin Ib] 400 mg PO DIRECTED 09/12/22 [History] Methylcellulose (with Sugar) [Citrucel] 2 tbsp PO DAILY 09/12/22 [History] Follow up Appointment(s)/Referral(s): Deb Grace MD [STAFF PHYSICIAN] - 11/08/22 9:00 am Patient Instructions/Handouts: Gastritis (DC), Colorectal Polyps (GEN) Activity/Diet/Wound Care/Special Instructions: Repeat colonoscopy 3 years, 2025 Discharge Disposition: HOME SELF-CARE
== END 2022-09-14 10:44 | disposition home or self-care (01) ==
LOC: ORWHC2ENDO 07:53
PROVIDERS: ATTEND Surgery Plastic and Reconstructive Surgery
DX: D12.3 Benign neoplasm of transverse colon (principal); D12.2 Benign neoplasm of ascending colon; D72.820 Lymphocytosis (symptomatic); K31.89 Other diseases of stomach and duodenum; K29.50 Unspecified chronic gastritis without bleeding; K21.00 Gastro-esophageal reflux disease with esophagitis, without bleeding; K44.9 Diaphragmatic hernia without obstruction or gangrene; K57.30 Diverticulosis of large intestine without perforation or abscess without bleeding; K64.1 Second degree hemorrhoids; K64.4 Residual hemorrhoidal skin tags; E07.9 Disorder of thyroid, unspecified; Z98.891 History of uterine scar from previous surgery; Z80.0 Family history of malignant neoplasm of digestive organs; Z90.49 Acquired absence of other specified parts of digestive tract; Z90.89 Acquired absence of other organs; Z98.890 Other specified postprocedural states; Z79.51 Long term (current) use of inhaled steroids; Z82.49 Family history of ischemic heart disease and other diseases of the circulatory system; Z83.3 Family history of diabetes mellitus; Z79.899 Other long term (current) drug therapy
CPT/HCPCS: 81025; 88305; 45385; 43239; J2704; J2001